=== PATIENT | female | born 1980 | race African-American/Black ===

== ENCOUNTER 2017-07-29 21:06 | Emergency (ER) | payer MEDICAID ==
[~2017-07-29] VITALS: Ht 165.1 cm; Wt 99.8 kg
[2017-07-29] MEDS ORDERED: MIGRAINE MEDS (21:39)
[2017-07-29] MEDS ORDERED: Meclizine 25mg tab ORAL ONE (22:15)
[2017-07-29 23:32] LABS: APPEARANCE,URINE CLEAR; KETONES,URINE 1+ (NEGATIVE); LEUKOCYTE ESTERASE ,URINE 1+ (NEGATIVE); NITRITE,URINE POSITIVE (NEGATIVE); PH,URINE 5 (4.5-8.0); PROTEIN,URINE 2+ (NEGATIVE); UROBILINOGEN,URINE NORMAL MG/DL (0.0-1.0)
[2017-07-29 23:34] LABS: MEAN CORPUSCULAR HEMOGLOBIN 29.6 PG (27.0-31.0); MEAN CORPUSCULAR HGB CONC 33.5 G/DL (32.0-36.0); MEAN CORPUSCULAR VOLUME 88 FL (80-99); PLATELET COUNT 159 K/UL (150-450); RED BLOOD COUNT 4.25 M/UL (4.20-5.40); RED CELL DISTRIBUTION WIDTH 13.2 % (11.6-14.8); WHITE BLOOD COUNT 10.3 K/UL (4.8-10.8)
[2017-07-29 23:45] LABS: ANION GAP 7 mmol/L (5-15); CALCIUM 9.5 MG/DL (8.5-10.1); CARBON DIOXIDE 28 MMOL/L (21-32); CHLORIDE 102 MMOL/L (98-107); CREATININE 0.9 MG/DL (0.55-1.30); GLOMERULAR FILTRATION RATE > 60 mL/min (>60); POTASSIUM 3.6 MMOL/L (3.5-5.1); SODIUM 137 MMOL/L (136-145)
[2017-07-29 23:46] LABS: BACTERIA,URINE FEW /HPF; SQUAMOUS EPITHELIAL CELL,UR FEW /LPF (NONE/OCC)
[2017-07-29 23:47] LABS: FINE GRANULAR CASTS,URINE 0-2 /LPF; MUCUS,URINE FEW /LPF (NONE/OCC)
[2017-07-29 23:49] LABS: INR 0.9 (0.9-1.1); PROTHROMBIN TIME 9.8 SEC (9.30-11.50)
[2017-07-29 23:50] LABS: ALANINE AMINOTRANSFERASE 20 U/L (12-78); ALBUMIN/GLOBULIN RATIO 0.7 (1.0-2.7); ASPARTATE AMINO TRANSFERASE 17 U/L (15-37); TOTAL PROTEIN 8.7 G/DL (6.4-8.2)
[2017-07-30] MEDS ORDERED: IBUPROFEN600 MG ORAL (01:28)
[2017-07-30] MEDS ORDERED: MECLIZINE HCL25 MG ORAL (01:28)
[2017-07-30 02:00] VITALS: BP 112/65
--- NOTE | 2017-07-30 04:39 | Emergency Room Report ---
History of Present Illness General Chief Complaint: Dizziness Source: Patient Present Illness HPI Patient is a 37-year-old female presented after increased dizziness as well as generalized weakness. Patient reports having gradual onset of symptoms. She reports having headache. She had a poorly been having some diarrhea earlier in the day. She stated that she had gradual onset of symptoms. She reported syncopal episode while on the toilet. She reported increased pain to the right side of her face near her eyebrow. She denied any visual changes. Allergies: Coded Allergies: ACETAMINOPHEN (Verified Allergy, Unknown, 07/29/17) AMPHENICOLS (Verified Allergy, Unknown, 07/29/17) CLINDAMYCIN (Verified Allergy, Unknown, 07/29/17) OXYCODONE (Verified Allergy, Unknown, 07/29/17) PENICILLINS (Verified Allergy, Unknown, 07/29/17) TERBUTALINE (Verified Allergy, Unknown, 07/29/17) TRAMADOL (Verified Allergy, Unknown, 07/29/17) Patient History Past Medical History: see triage record Last Menstrual Period: last month Reviewed Nursing Documentation: PMH: Agreed, PSxH: Agreed Nursing Documentation-PMH Hx Neurological Problems: Yes - MIGRAINE Review of Systems All Other Systems: negative except mentioned in HPI Physical Exam Vital Signs Date Time Temp Pulse Resp B/P (MAP) Pulse Ox O2 Delivery O2 Flow Rate FiO2 07/29/17 21:28 97.9 78 16 101/63 100 Room Air Sp02 EP Interpretation: reviewed, normal General Appearance: normal inspection, well appearing, no apparent distress, alert, GCS 15 Head: atraumatic ENT: normal ENT inspection, hearing grossly normal, normal voice Neck: normal inspection, full range of motion, supple, no bony tend Respiratory: normal inspection, lungs clear, normal breath sounds, no respiratory distress, no retraction, no wheezing Cardiovascular #1: regular rate, rhythm, no edema Gastrointestinal: normal inspection, normal bowel sounds, non tender, soft, no guarding, no hernia Genitourinary: no CVA tenderness Musculoskeletal: normal inspection, back normal, normal range of motion Neurologic: normal inspection, alert, oriented x3, responsive, 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 Differential diagnosis included but not limited to syncope versus seizure. Potential causes for syncope included arrhythmia, dehydration, acute coronary syndrome, severe anemia, pulmonary embolus.Because of complexity of patient's case laboratory testing and imaging studies were ordered. EKG interpreted by me showed normal sinus rhythm with a rate of 63 with a diffuse concave up ST elevation with reciprocal changes or T wave changes. The bedside ultrasound was performed which showed minimal pericardial fluid with normal cardiac motion and no wall motion abnormalities. Patient given IV fluids and meclizine with improvement. Patient is given prescription for ibuprofen as well as meclizine. The patient is advised to follow up with primary care doctor in 1-2 days. Patient is advised to return if any worsening condition or if any changes in status that are concerning. This report is dictated with [employer] ice bag assembler software which may occasionally lead to discrepancies related to use of this software. Labs Test 07/29/17 22:50 White Blood Count 10.3 K/UL (4.8-10.8) Red Blood Count 4.25 M/UL (4.20-5.40) Hemoglobin 12.6 G/DL (12.0-16.0) Hematocrit 37.6 % (37.0-47.0) Mean Corpuscular Volume 88 FL (80-99) Mean Corpuscular Hemoglobin 29.6 PG (27.0-31.0) Mean Corpuscular Hemoglobin Concent 33.5 G/DL (32.0-36.0) Red Cell Distribution Width 13.2 % (11.6-14.8) Platelet Count 159 K/UL (150-450) Mean Platelet Volume 12.0 FL (6.5-10.1) Neutrophils (%) (Auto) % (45.0-75.0) Lymphocytes (%) (Auto) % (20.0-45.0) Monocytes (%) (Auto) % (1.0-10.0) Eosinophils (%) (Auto) % (0.0-3.0) Basophils (%) (Auto) % (0.0-2.0) Prothrombin Time 9.8 SEC (9.30-11.50) Prothromb Time International Ratio 0.9 (0.9-1.1) Activated Partial Thromboplast Time 25 SEC (23-33) Urine Color Yellow Urine Appearance Clear Urine pH 5 (4.5-8.0) Urine Specific [place] 1.020 (1.005-1.035) Urine Protein 2+ (NEGATIVE) Urine Glucose (UA) Negative (NEGATIVE) Urine Ketones 1+ (NEGATIVE) Urine Occult Blood 2+ (NEGATIVE) Urine Nitrite Positive (NEGATIVE) Urine Bilirubin Negative (NEGATIVE) Urine Urobilinogen Normal MG/DL (0.0-1.0) Urine Leukocyte Esterase 1+ (NEGATIVE) Urine RBC 2-4 /HPF (0 - 2) Urine WBC 2-4 /HPF (0 - 2) Urine Squamous Epithelial Cells Few /LPF (NONE/OCC) Urine Bacteria Few /HPF (NONE) Urine Fine Granular Casts 0-2 /LPF (NONE) Urine Mucus Few /LPF (NONE/OCC) Urine HCG, Qualitative Negative Sodium Level 137 MMOL/L (136-145) Potassium Level 3.6 MMOL/L (3.5-5.1) Chloride Level 102 MMOL/L (98-107) Carbon Dioxide Level 28 MMOL/L (21-32) Anion Gap 7 mmol/L (5-15) Blood Urea Nitrogen 12 mg/dL (7-18) Creatinine 0.9 MG/DL (0.55-1.30) Estimat Glomerular Filtration Rate > 60 mL/min (>60) Glucose Level 128 MG/DL (74-106) Calcium Level 9.5 MG/DL (8.5-10.1) Total Bilirubin 0.2 MG/DL (0.2-1.0) Aspartate Amino Transf (AST/SGOT) 17 U/L (15-37) Alanine Aminotransferase (ALT/SGPT) 20 U/L (12-78) Alkaline Phosphatase 84 U/L (46-116) Troponin I 0.000 ng/mL (0.000-0.056) Total Protein 8.7 G/DL (6.4-8.2) Albumin 3.7 G/DL (3.4-5.0) Globulin 5.0 g/dL Albumin/Globulin Ratio 0.7 (1.0-2.7) Last Vital Signs Date Time Temp Pulse Resp B/P (MAP) Pulse Ox O2 Delivery O2 Flow Rate FiO2 07/30/17 02:00 81 18 112/65 100 Room Air 07/29/17 21:28 97.9 Status: improved Disposition: HOME, SELF-CARE Condition: Stable Scripts Meclizine Hcl* (MECLIZINE*) 25 Mg Tablet 25 MG ORAL THREE TIMES A DAY, #30 TAB Prov: Donavan Frazier 07/30/17 Ibuprofen* (MOTRIN*) 600 Mg Tablet 600 MG ORAL Q8H Y for For Pain, #30 TAB 0 Refills Prov: Donavan Frazier 07/30/17 Patient Instructions: Pericarditis, Syncope Donavan Frazier Jul 30, 2017 04:39
--- NOTE | 2017-07-30 18:14 | Cardiology Report ---
APPROVED REPORT EKG Measurement Heart [id number] Normal sinus rhythm Normal ECG
--- NOTE | 2017-07-31 09:41 | Diagnostic Imaging Report ---
Indication: Reason For Exam: PAIN Technique: Continuous helical CT scanning of the head was performed without intravenous contrast material. Axial and coronal 5 mm sections were generated. Radiation dose was minimized using automated exposure control Dose: Total Dose Length Product - DLP [address] Dose Index - CTDIvol(s) 70.38 mGy. Comparison: none Findings: The ventricular system is normal in size and configuration. There is no shift of midline structures. No abnormal extra-axial fluid collections are noted. There is no evidence of intracerebral bleeding. No other abnormal high or low density areas are noted within the brain. Impression: Normal CT scan of the head without contrast material. This agrees with the preliminary interpretation provided overnight by [facility] service. The CT scanner at [facility] is accredited by the [employer] and the scans are performed using protocols designed to limit radiation exposure to as low as reasonably achievable to attain images of sufficient resolution adequate for diagnostic evaluation.
== END 2017-07-30 02:00 | disposition home or self-care (01) ==
LOC: EMR 22:28
DX: R42 Dizziness and giddiness (principal); B34.9 Viral infection, unspecified; Z88.6 Allergy status to analgesic agent; Z88.0 Allergy status to penicillin
CPT/HCPCS: 36415; 70450; 80053; 81001; 81025; 84484; 85025; 85610; 85730; 93005; 96361; 96374; 99284; J2405